=== PATIENT | male | born 1980 | race Two or more races ===

== ENCOUNTER 2017-11-20 00:40 | Inpatient (IN) | payer OTHER ==
[2017-11-20 01:32] LABS: ADD MAN DIFF? NO
[2017-11-20 01:35] LABS: BASO % 0 % (0-3); EOS # 0.9 x10^3/uL (0.0-0.7); EOS % 5 % (0-3); HEMATOCRIT 44.5 % (39.0-53.0); HEMOGLOBIN 15.5 g/dL (13.0-17.5); LYMPH # 3.5 x10^3/uL (1.0-4.8); LYMPH % 20 % (24-48); MEAN CORPUSCULAR HEMOGLOBIN 31 pg (25-35); MEAN CORPUSCULAR HGB CONC 35 g/dL (31-37); MEAN CORPUSCULAR VOLUME 89 fL (79-100); MONO # 1.1 x10^3/uL (0.0-1.1); MONO % 7 % (0-9); NEUT # 11.9 x10^3uL (1.8-7.7); NEUT % 68 % (31-73); PLATELET COUNT 397 x10^3/uL (140-400); RED BLOOD COUNT 4.98 x10^6/uL (4.30-5.70); RED CELL DISTRIBUTION WIDTH 12.6 % (11.5-14.5); WHITE BLOOD COUNT 17.4 x10^3/uL (4.0-11.0)
[2017-11-20] MEDS: MORPHINE SULFATE 4 MG/ML DISP.SYRIN. IV/SQ ×3 (01:37→04:20)
[2017-11-20] MEDS: ONDANSETRON PF 4 MG/2 ML VIAL. IV ×4 (01:38→12:38)
[2017-11-20] MEDS: IV NORMAL SALINE 1000ML BAG 1,000 ML IV ×4 (01:38→17:10)
[2017-11-20 01:44] LABS: ANION GAP 6 (6-14); BLOOD UREA NITROGEN 19 mg/dL (8-26); BUN/CREATININE RATIO 24 (6-20); CALCIUM 9.6 mg/dL (8.5-10.1); CARBON DIOXIDE 30 mmol/L (21-32); CHLORIDE 103 mmol/L (98-107); CREATININE 0.8 mg/dL (0.7-1.3); GFR 107.6; GLUCOSE 122 mg/dL (70-99); POTASSIUM 3.8 mmol/L (3.5-5.1); SODIUM 139 mmol/L (136-145)
[2017-11-20 01:50] LABS: ALK PHOS 80 U/L (46-116); ALT (SGPT) 45 U/L (16-63); AST (SGOT) 30 U/L (15-37); TOTAL BILIRUBIN 0.4 mg/dL (0.2-1.0); TOTAL PROTEIN 8.2 g/dL (6.4-8.2)
[2017-11-20 01:55] LABS: BILIRUBIN,URINE NEGATIVE (NEG); CLARITY,URINE CLEAR; COLOR,URINE YELLOW; GLUCOSE,URINE NEGATIVE (NEG); NITRITE,URINE NEGATIVE (NEG); PROTEIN,URINE NEGATIVE (NEG-TRACE); UROBILINOGEN,URINE 0.2 mg/dL (0.2 mg/dL)
[2017-11-20 02:00] LABS: AMORPHOUS SEDIMENT,UR PRESENT /HPF; BACTERIA,URINE 0 /HPF (0-FEW); HYALINE CASTS, URINE FEW /HPF; RBC,URINE 0 /HPF (0-2); SQUAMOUS EPITHELIAL CELL,UR OCC /LPF
[2017-11-20 02:01] LABS: GRANULAR CASTS,URINE OCCASIONAL /HPF
[2017-11-20] MEDS ORDERED: CONTRAST GIVEN MC (02:30)
[2017-11-20] MEDS: IOHEXOL 300 MG/ML 100ML VIAL. IV (02:34)
[2017-11-20] MEDS ORDERED: PIP/TAZO PER PHARMACY MC (04:00)
[2017-11-20] MEDS: ACETAMINOPHEN 325 MG TABLET. PO (04:21)
[2017-11-20] MEDS: PIPERACILLIN/TAZOBACTAM 3.375 GM in IV NORMAL SALINE 50ML 50 ML IV ×3 (04:21→18:15)
[2017-11-20 04:31] LABS: LACTIC ACID 2.7 mmol/L (0.4-2.0)
[2017-11-20] MEDS: VANCOMYCIN 2 GM in IV 1/2 NORMAL SALINE 500 ML IV (04:59)
[2017-11-20] MEDS: VANCOMYCIN PER PHARMACY MC ×2 (06:55→15:35)
[2017-11-20 07:19] LABS: LACTIC ACID 2.2 mmol/L (0.4-2.0)
[2017-11-20] MEDS: LACTOBACILLUS RHAMNOSUS GG 1 CAPSULE. PO ×2 (08:10→21:00)
[2017-11-20] MEDS: fentaNYL PF VIAL 100 MCG/2 ML VIAL IV ×3 (10:07→17:40)
[2017-11-20] MEDS ORDERED: hydrALAZINE 20 MG/ML VIAL. IVP (11:15)
[2017-11-20] MEDS ORDERED: HYDROcodone/APAP 5/325MG 1 TAB TABLET PO (11:15)
[2017-11-20] MEDS ORDERED: traMADol 50 MG TABLET PO (11:15)
[2017-11-20] MEDS: MORPHINE SULFATE 4 MG/ML DISP.SYRIN. IV (12:39)
[2017-11-20] MEDS: ENOXAPARIN 40 MG/0.4 ML SYRINGE. SQ (14:00)
[2017-11-20] MEDS: VANCOMYCIN 1.25 GM in IV 1/2 NORMAL SALINE 250 ML IV ×2 (14:26→22:00)
[2017-11-20] MEDS: IV RINGERS,LACTATED 1000ML 1,000 ML IV (14:49)
[2017-11-20] MEDS ORDERED: PROCHLORPERAZINE 10 MG/2 ML VIAL. IV (15:00)
[2017-11-20] MEDS ORDERED: LIDOCAINE 1% PF 2 ML VIAL. ID (15:00)
[2017-11-20] MEDS ORDERED: fentaNYL PF VIAL 100 MCG/2 ML VIAL IV (15:00)
[2017-11-20] MEDS ORDERED: MORPHINE SULFATE 4 MG/ML DISP.SYRIN. IV ×2 (15:00→17:15)
[2017-11-20] MEDS ORDERED: ONDANSETRON PF 4 MG/2 ML VIAL. IV (15:00)
[2017-11-20 15:04] LABS: HEMOGLOBIN 13.9 g/dL (13.0-17.5); MEAN CORPUSCULAR HEMOGLOBIN 31 pg (25-35); MEAN CORPUSCULAR HGB CONC 36 g/dL (31-37); MEAN CORPUSCULAR VOLUME 88 fL (79-100); PLATELET COUNT 312 x10^3/uL (140-400); RED BLOOD COUNT 4.43 x10^6/uL (4.30-5.70); RED CELL DISTRIBUTION WIDTH 12.8 % (11.5-14.5); WHITE BLOOD COUNT 11.4 x10^3/uL (4.0-11.0)
[2017-11-20] MEDS ORDERED: fentaNYL PF VIAL 100 MCG/2 ML VIAL (15:18)
[2017-11-20] MEDS ORDERED: LIDOCAINE 1% PF 5 ML VIAL. (15:18)
[2017-11-20] MEDS ORDERED: DEXAMETHASONE SOD PHOS 20 MG/5 ML VIAL. (15:18)
[2017-11-20] MEDS ORDERED: PROPOFOL 20 ML IV (15:18)
[2017-11-20] MEDS ORDERED: ONDANSETRON PF 4 MG/2 ML VIAL. (15:18)
[2017-11-20] MEDS ORDERED: PHENYLEPHRINE in 0.9% NACL PF 1 MG/10 ML SYRINGE. IV (16:10)
[2017-11-20] MEDS ORDERED: DEXTROSE 50% 25 GM / 50ML DISP.SYRIN. IV (17:15)
[2017-11-21] MEDS: PIPERACILLIN/TAZOBACTAM 3.375 GM in IV NORMAL SALINE 50ML 50 ML IV ×2 (00:41→06:00)
[2017-11-21] MEDS: HYDROcodone/APAP 7.5/325MG 1 TAB TABLET PO ×2 (01:21→22:06)
[2017-11-21] MEDS: ONDANSETRON PF 4 MG/2 ML VIAL. IV (01:39)
[2017-11-21] MEDS: oxyCODONE IR 5 MG TABLET PO ×2 (01:40→23:14)
[2017-11-21] MEDS: MORPHINE SULFATE 4 MG/ML DISP.SYRIN. IV ×2 (01:40→14:30)
[2017-11-21 05:56] LABS: ADD MAN DIFF? NO
[2017-11-21] MEDS ORDERED: MAGNESIUM HYDROXIDE 2,400 MG/30 ML ORAL.SUSP. PO (06:00)
[2017-11-21 06:05] LABS: BASO % 0 % (0-3); EOS % 0 % (0-3); HEMATOCRIT 38.1 % (39.0-53.0); HEMOGLOBIN 13.1 g/dL (13.0-17.5); LYMPH # 2.1 x10^3/uL (1.0-4.8); LYMPH % 17 % (24-48); MEAN CORPUSCULAR HEMOGLOBIN 31 pg (25-35); MEAN CORPUSCULAR HGB CONC 34 g/dL (31-37); MEAN CORPUSCULAR VOLUME 90 fL (79-100); MONO # 1.8 x10^3/uL (0.0-1.1); MONO % 15 % (0-9); NEUT # 8.6 x10^3uL (1.8-7.7); NEUT % 68 % (31-73); PLATELET COUNT 293 x10^3/uL (140-400); RED BLOOD COUNT 4.24 x10^6/uL (4.30-5.70); RED CELL DISTRIBUTION WIDTH 12.8 % (11.5-14.5); WHITE BLOOD COUNT 12.6 x10^3/uL (4.0-11.0)
[2017-11-21 06:14] LABS: BLOOD UREA NITROGEN 25 mg/dL (8-26); CALCIUM 7.8 mg/dL (8.5-10.1); CREATININE 3.1 mg/dL (0.7-1.3); GFR 22.5; GLUCOSE 168 mg/dL (70-99); SODIUM 140 mmol/L (136-145)
[2017-11-21 06:15] LABS: ANION GAP 12 (6-14); CARBON DIOXIDE 24 mmol/L (21-32); CHLORIDE 104 mmol/L (98-107); POTASSIUM 4.2 mmol/L (3.5-5.1)
[2017-11-21 06:18] LABS: VANC TR 38.4 mcg/mL (10.0-20.0)
[2017-11-21] MEDS: VANCOMYCIN PER PHARMACY MC (06:31)
[2017-11-21 07:53] LABS: CREATINE KINASE 469 U/L (39-308)
[2017-11-21] MEDS: ASPIRIN 325 MG TABLET PO (08:06)
[2017-11-21] MEDS: SENNOSIDES/DOCUSATE 8.6/50MG TABLET. PO (10:13)
[2017-11-21] MEDS: IV NORMAL SALINE 1000ML BAG 1,000 ML IV ×3 (10:13→22:07)
[2017-11-21] MEDS: LACTOBACILLUS RHAMNOSUS GG 1 CAPSULE. PO ×2 (10:14→22:07)
[2017-11-21] MEDS: HEPARIN PF for SUB-Q USE 5,000 UNIT/0.5 ML VIAL. SQ ×2 (13:51→22:00)
[2017-11-21] MEDS: PIPERACILLIN/TAZOBACTAM 2.25 GM in IV NORMAL SALINE 50ML 50 ML IV ×2 (13:53→22:06)
[2017-11-21] MEDS ORDERED: BISACODYL 10 MG SUPP.RECT. PR (16:00)
[2017-11-21] MEDS: DIPHTH,PERTUSS(ACELL),TET TOX 0.5 ML DISP.SYRIN. VAX IM (16:13)
[2017-11-21] MEDS: fentaNYL PF VIAL 100 MCG/2 ML VIAL IV (23:14)
[2017-11-22] MEDS: IV NORMAL SALINE 1000ML BAG 1,000 ML IV ×3 (04:00→17:16)
[2017-11-22] MEDS ORDERED: VANCOMYCIN RANDOM LEVEL. MC (05:00)
[2017-11-22 05:27] LABS: ADD MAN DIFF? NO
[2017-11-22 05:40] LABS: BASO # 0.1 x10^3/uL (0.0-0.2); BASO % 0 % (0-3); EOS # 0.2 x10^3/uL (0.0-0.7); EOS % 2 % (0-3); HEMATOCRIT 34.3 % (39.0-53.0); HEMOGLOBIN 12.1 g/dL (13.0-17.5); LYMPH # 2.6 x10^3/uL (1.0-4.8); LYMPH % 19 % (24-48); MEAN CORPUSCULAR HEMOGLOBIN 32 pg (25-35); MEAN CORPUSCULAR HGB CONC 35 g/dL (31-37); MEAN CORPUSCULAR VOLUME 90 fL (79-100); MONO # 1.5 x10^3/uL (0.0-1.1); MONO % 11 % (0-9); NEUT % 68 % (31-73); PLATELET COUNT 260 x10^3/uL (140-400); RED BLOOD COUNT 3.79 x10^6/uL (4.30-5.70); RED CELL DISTRIBUTION WIDTH 12.9 % (11.5-14.5); WHITE BLOOD COUNT 13.2 x10^3/uL (4.0-11.0)
[2017-11-22] MEDS: PIPERACILLIN/TAZOBACTAM 2.25 GM in IV NORMAL SALINE 50ML 50 ML IV ×3 (05:57→22:29)
[2017-11-22] MEDS: HEPARIN PF for SUB-Q USE 5,000 UNIT/0.5 ML VIAL. SQ ×3 (05:57→22:32)
[2017-11-22 05:59] LABS: ANION GAP 13 (6-14); BLOOD UREA NITROGEN 43 mg/dL (8-26); CALCIUM 7.5 mg/dL (8.5-10.1); CARBON DIOXIDE 22 mmol/L (21-32); CHLORIDE 105 mmol/L (98-107); CREATININE 4.8 mg/dL (0.7-1.3); GFR 13.6; GLUCOSE 106 mg/dL (70-99); POTASSIUM 3.5 mmol/L (3.5-5.1); SODIUM 140 mmol/L (136-145)
[2017-11-22] MEDS: HYDROcodone/APAP 7.5/325MG 1 TAB TABLET PO (06:29)
[2017-11-22] MEDS: ONDANSETRON PF 4 MG/2 ML VIAL. IV (07:25)
[2017-11-22 08:33] LABS: CREATINE KINASE 206 U/L (39-308)
[2017-11-22] MEDS: MORPHINE SULFATE 4 MG/ML DISP.SYRIN. IV ×3 (09:24→23:06)
[2017-11-22] MEDS: ASPIRIN 325 MG TABLET PO (09:24)
[2017-11-22] MEDS: SENNOSIDES/DOCUSATE 8.6/50MG TABLET. PO (09:25)
[2017-11-22] MEDS: LACTOBACILLUS RHAMNOSUS GG 1 CAPSULE. PO ×2 (09:25→21:03)
[2017-11-22 11:41] LABS: IONIZED CALCIUM 1.05 mmol/L (1.13-1.32)
[2017-11-22 11:47] LABS: ALBUMIN 2.6 g/dL (3.4-5.0)
[2017-11-22 11:47] LABS: PHOSPHORUS 3.3 mg/dL (2.6-4.7)
[2017-11-22 13:57] LABS: LACTIC ACID 0.8 mmol/L (0.4-2.0)
[2017-11-22] MEDS: DOCUSATE SODIUM 100 MG CAPSULE. PO (15:43)
[2017-11-22] MEDS: oxyCODONE IR 5 MG TABLET PO (15:44)
[2017-11-22] MEDS: ACETAMINOPHEN 325 MG TABLET. PO (23:38)
[2017-11-23] MEDS: HEPARIN PF for SUB-Q USE 5,000 UNIT/0.5 ML VIAL. SQ ×3 (06:00→21:46)
[2017-11-23] MEDS: PIPERACILLIN/TAZOBACTAM 2.25 GM in IV NORMAL SALINE 50ML 50 ML IV ×3 (06:13→21:35)
[2017-11-23] MEDS: ONDANSETRON PF 4 MG/2 ML VIAL. IV (06:14)
[2017-11-23] MEDS: IV NORMAL SALINE 1000ML BAG 1,000 ML IV ×3 (06:14→13:20)
[2017-11-23] MEDS: MORPHINE SULFATE 4 MG/ML DISP.SYRIN. IV (06:14)
[2017-11-23] MEDS ORDERED: IV RINGERS,LACTATED 1000ML 1,000 ML IV (07:00)
[2017-11-23] MEDS ORDERED: ONDANSETRON PF 4 MG/2 ML VIAL. IV ×2 (07:00→13:30)
[2017-11-23] MEDS ORDERED: MORPHINE SULFATE 4 MG/ML DISP.SYRIN. IV ×3 (07:00→13:31)
[2017-11-23] MEDS ORDERED: LIDOCAINE 1% PF 2 ML VIAL. ID (07:00)
[2017-11-23] MEDS ORDERED: fentaNYL PF VIAL 100 MCG/2 ML VIAL IV ×2 (07:00→13:30)
[2017-11-23 07:43] LABS: ADD MAN DIFF? NO
[2017-11-23 07:46] LABS: BASO # 0.1 x10^3/uL (0.0-0.2); BASO % 1 % (0-3); EOS # 0.4 x10^3/uL (0.0-0.7); EOS % 3 % (0-3); HEMATOCRIT 33.6 % (39.0-53.0); HEMOGLOBIN 11.5 g/dL (13.0-17.5); LYMPH # 1.9 x10^3/uL (1.0-4.8); LYMPH % 16 % (24-48); MEAN CORPUSCULAR HEMOGLOBIN 31 pg (25-35); MEAN CORPUSCULAR HGB CONC 34 g/dL (31-37); MEAN CORPUSCULAR VOLUME 90 fL (79-100); MONO # 1.3 x10^3/uL (0.0-1.1); MONO % 11 % (0-9); NEUT # 8.7 x10^3uL (1.8-7.7); NEUT % 70 % (31-73); PLATELET COUNT 281 x10^3/uL (140-400); RED BLOOD COUNT 3.71 x10^6/uL (4.30-5.70); WHITE BLOOD COUNT 12.3 x10^3/uL (4.0-11.0)
[2017-11-23] MEDS: ASPIRIN 325 MG TABLET PO (08:00)
[2017-11-23 08:04] LABS: ALBUMIN 2.5 g/dL (3.4-5.0); ANION GAP 15 (6-14); BLOOD UREA NITROGEN 57 mg/dL (8-26); CALCIUM 7.6 mg/dL (8.5-10.1); CARBON DIOXIDE 19 mmol/L (21-32); CHLORIDE 108 mmol/L (98-107); CREATININE 5.8 mg/dL (0.7-1.3); GFR 10.9; GLUCOSE 111 mg/dL (70-99); PHOSPHORUS 3.9 mg/dL (2.6-4.7); POTASSIUM 4.1 mmol/L (3.5-5.1); SODIUM 142 mmol/L (136-145)
[2017-11-23] MEDS: LACTOBACILLUS RHAMNOSUS GG 1 CAPSULE. PO ×2 (09:00→21:33)
[2017-11-23] MEDS: SENNOSIDES/DOCUSATE 8.6/50MG TABLET. PO ×2 (09:00→14:00)
[2017-11-23] MEDS ORDERED: fentaNYL PF VIAL 100 MCG/2 ML VIAL ×3 (11:22→12:53)
[2017-11-23] MEDS ORDERED: PROPOFOL 20 ML IV ×2 (11:23→12:20)
[2017-11-23] MEDS ORDERED: LIDOCAINE 1% PF 5 ML VIAL. (11:23)
[2017-11-23] MEDS ORDERED: DEXAMETHASONE SOD PHOS 20 MG/5 ML VIAL. (11:23)
[2017-11-23] MEDS ORDERED: ONDANSETRON PF 4 MG/2 ML VIAL. (11:23)
[2017-11-23] MEDS: fentaNYL PF VIAL 100 MCG/2 ML VIAL IM (11:45)
[2017-11-23] MEDS ORDERED: IV NORMAL SALINE 1000ML BAG 1,000 ML IV ×2 (12:00→17:26)
[2017-11-23 12:11] LABS: SEDIMENTATION RATE 52 (0-15)
[2017-11-23] MEDS ORDERED: SEVOFLURANE 16 TO 30 MINUTES. IH (12:26)
[2017-11-23] MEDS: BUPIVACAINE-EPI 0.25%-1:200000 50 ML VIAL. (12:34)
[2017-11-23] MEDS ORDERED: POLYETHYLENE GLYCOL 3350 17 GM PACKET. PO (13:30)
[2017-11-23] MEDS ORDERED: DEXTROSE 50% 25 GM / 50ML DISP.SYRIN. IV (13:30)
[2017-11-23] MEDS ORDERED: HYDROcodone/APAP 7.5/325MG 1 TAB TABLET PO ×2 (13:30)
[2017-11-23] MEDS ORDERED: MORPHINE SULFATE 2 MG/ML DISP.SYRIN. IV (13:30)
[2017-11-23] MEDS ORDERED: oxyCODONE IR 5 MG TABLET PO (13:30)
[2017-11-23] MEDS: fentaNYL PF VIAL 100 MCG/2 ML VIAL IV ×2 (13:39→13:45)
[2017-11-23] MEDS: PROCHLORPERAZINE 10 MG/2 ML VIAL. IV (13:47)
[2017-11-23] MEDS ORDERED: MEPERIDINE PF 25 MG/ML VIAL. (13:52)
[2017-11-23] MEDS: MEPERIDINE PF 25 MG/ML VIAL. IM (14:10)
[2017-11-23 14:26] LABS: CALCIUM PTH 7.8 mg/dL (8.7-10.2); CREATININE PTH 4.87 mg/dL (0.76-1.27); PHOSPHORUS PTH 3.2 mg/dL (2.5-4.5); PTH INTACT 148 pg/mL (15-65); eGFR AFRICAN-AMER 16 (>59); eGFR NON AFRICAN-AMER 14 (>59)
[2017-11-23] MEDS ORDERED: HEPARIN for IV BOLUS 10,000 UNIT/10 ML VIAL. (14:30)
[2017-11-23] MEDS ORDERED: LIDOCAINE WITH 8.4% SOD BICARB 3 ML DISP.SYRIN. (14:30)
[2017-11-23] MEDS ORDERED: hydrALAZINE 20 MG/ML VIAL. IVP (15:00)
[2017-11-23] MEDS: FUROSEMIDE 100 MG/10 ML VIAL. IVP (15:45)
[2017-11-23 16:03] LABS: BASE EXCESS ABG -11 mmol/L (-3-3); HCO3 ABG 14 mmol/L (21-28); PCO2 ABG 28 mmHg (35-46); PO2 ABG 83 mmHg (75-108); SAT O2 ABG 95 % (92-99)
[2017-11-23] MEDS: SODIUM BICARB ADULT 8.4% 50 MEQ/50 ML DISP.SYRIN. IV ×2 (16:30)
[2017-11-23] MEDS ORDERED: DIALYSIS PATIENT. MC ×2 (17:30)
[2017-11-24 05:22] LABS: MRSA BY PCR Negative (Negative)
[2017-11-24] MEDS: PIPERACILLIN/TAZOBACTAM 2.25 GM in IV NORMAL SALINE 50ML 50 ML IV (05:42)
[2017-11-24] MEDS: HEPARIN PF for SUB-Q USE 5,000 UNIT/0.5 ML VIAL. SQ ×3 (05:43→22:23)
[2017-11-24 05:55] LABS: ADD MAN DIFF? NO
[2017-11-24] MEDS ORDERED: MAGNESIUM HYDROXIDE 2,400 MG/30 ML ORAL.SUSP. PO (06:00)
[2017-11-24 06:04] LABS: BASO # 0.1 x10^3/uL (0.0-0.2); BASO % 1 % (0-3); EOS # 0.1 x10^3/uL (0.0-0.7); EOS % 1 % (0-3); HEMATOCRIT 31.4 % (39.0-53.0); HEMOGLOBIN 10.9 g/dL (13.0-17.5); LYMPH # 2.1 x10^3/uL (1.0-4.8); LYMPH % 14 % (24-48); MEAN CORPUSCULAR HEMOGLOBIN 31 pg (25-35); MEAN CORPUSCULAR HGB CONC 35 g/dL (31-37); MEAN CORPUSCULAR VOLUME 89 fL (79-100); MONO # 1.7 x10^3/uL (0.0-1.1); MONO % 11 % (0-9); NEUT # 11.1 x10^3uL (1.8-7.7); NEUT % 74 % (31-73); PLATELET COUNT 304 x10^3/uL (140-400); RED BLOOD COUNT 3.52 x10^6/uL (4.30-5.70); RED CELL DISTRIBUTION WIDTH 12.8 % (11.5-14.5)
[2017-11-24 06:35] LABS: BACTERIA,URINE 0 /HPF (0-FEW); BILIRUBIN,URINE NEGATIVE (NEG); CLARITY,URINE CLEAR; COLOR,URINE YELLOW; GLUCOSE,URINE NEGATIVE (NEG); NITRITE,URINE NEGATIVE (NEG); PH,URINE 5.5; PROTEIN,URINE 30 mg/dL (NEG-TRACE); RBC,URINE 0 /HPF (0-2); SQUAMOUS EPITHELIAL CELL,UR OCC /LPF; UROBILINOGEN,URINE 0.2 mg/dL (0.2 mg/dL); WBC,URINE 0 /HPF (0-4)
[2017-11-24] MEDS: HYDROcodone/APAP 7.5/325MG 1 TAB TABLET PO ×3 (06:42→23:41)
[2017-11-24 06:43] LABS: ALBUMIN 2.3 g/dL (3.4-5.0); ALBUMIN/GLOBULIN RATIO 0.5 (1.0-1.7); ALK PHOS 114 U/L (46-116); ALT (SGPT) 48 U/L (16-63); ANION GAP 11 (6-14); AST (SGOT) 30 U/L (15-37); BLOOD UREA NITROGEN 49 mg/dL (8-26); BUN/CREATININE RATIO 11 (6-20); CALCIUM 7.7 mg/dL (8.5-10.1); CARBON DIOXIDE 25 mmol/L (21-32); CHLORIDE 106 mmol/L (98-107); CREATININE 4.6 mg/dL (0.7-1.3); GFR 14.3; GLUCOSE 127 mg/dL (70-99); SODIUM 142 mmol/L (136-145); TOTAL BILIRUBIN 0.8 mg/dL (0.2-1.0); TOTAL PROTEIN 6.5 g/dL (6.4-8.2)
[2017-11-24 08:32] LABS: HEP B SURFACE ABDY Reactive (.); HEP B SURFACE AG Negative (Negative)
[2017-11-24] MEDS: LACTOBACILLUS RHAMNOSUS GG 1 CAPSULE. PO ×2 (09:23→22:18)
[2017-11-24] MEDS: ASPIRIN 325 MG TABLET PO (11:24)
[2017-11-24] MEDS: SENNOSIDES/DOCUSATE 8.6/50MG TABLET. PO (11:24)
[2017-11-24] MEDS ORDERED: IV NORMAL SALINE 1000ML BAG 1,000 ML IV ×2 (14:16)
[2017-11-24] MEDS ORDERED: DIALYSIS PATIENT. MC (14:30)
[2017-11-24] MEDS ORDERED: diphenhydrAMINE 50 MG/ML VIAL IV ×2 (14:30)
[2017-11-24] MEDS ORDERED: 0.9 % SODIUM CHLORIDE 10 ML DISP.SYRIN. IV ×2 (14:30)
[2017-11-24] MEDS: FOLIC/VIT B COMP W-C (RENAL) TABLET. PO (15:15)
[2017-11-24] MEDS: ASCORBIC ACID 500 MG TABLET PO (15:15)
[2017-11-24 15:32] LABS: SODIUM, URINE <60 mmol/L (Not Estab.); UR POTASSIUM 14.9 mmol/L (Not Estab.)
[2017-11-24] MEDS ORDERED: BISACODYL 10 MG SUPP.RECT. PR (16:00)
[2017-11-24] MEDS: ACETAMINOPHEN 325 MG TABLET. PO (19:35)
[2017-11-24 22:21] LABS: SPECIMEN SOURCE Urine (.); STREP PNEUMO ANTIGEN Negative (Negative)
[2017-11-24 22:21] LABS: LEGIONELLA AG UR Negative (Negative)
[2017-11-25] MEDS: HYDROcodone/APAP 7.5/325MG 1 TAB TABLET PO (04:07)
[2017-11-25] MEDS: HEPARIN PF for SUB-Q USE 5,000 UNIT/0.5 ML VIAL. SQ ×3 (06:05→21:57)
[2017-11-25] MEDS: oxyCODONE IR 5 MG TABLET PO (07:12)
[2017-11-25] MEDS: FOLIC/VIT B COMP W-C (RENAL) TABLET. PO (08:29)
[2017-11-25] MEDS: LACTOBACILLUS RHAMNOSUS GG 1 CAPSULE. PO ×2 (08:29→21:54)
[2017-11-25] MEDS: SENNOSIDES/DOCUSATE 8.6/50MG TABLET. PO (08:29)
[2017-11-25] MEDS: ASCORBIC ACID 500 MG TABLET PO (08:30)
[2017-11-25] MEDS: ASPIRIN 325 MG TABLET PO (08:30)
[2017-11-26] MEDS: MORPHINE SULFATE 4 MG/ML DISP.SYRIN. IV ×3 (04:15→15:33)
[2017-11-26 05:15] LABS: ADD MAN DIFF? NO
[2017-11-26 05:21] LABS: BASO # 0.1 x10^3/uL (0.0-0.2); BASO % 1 % (0-3); EOS # 1.1 x10^3/uL (0.0-0.7); EOS % 8 % (0-3); HEMATOCRIT 31.2 % (39.0-53.0); HEMOGLOBIN 10.9 g/dL (13.0-17.5); LYMPH # 2.2 x10^3/uL (1.0-4.8); LYMPH % 17 % (24-48); MEAN CORPUSCULAR HEMOGLOBIN 31 pg (25-35); MEAN CORPUSCULAR HGB CONC 35 g/dL (31-37); MEAN CORPUSCULAR VOLUME 90 fL (79-100); MONO # 1.4 x10^3/uL (0.0-1.1); MONO % 11 % (0-9); NEUT # 8.2 x10^3uL (1.8-7.7); NEUT % 63 % (31-73); PLATELET COUNT 331 x10^3/uL (140-400); RED BLOOD COUNT 3.48 x10^6/uL (4.30-5.70); RED CELL DISTRIBUTION WIDTH 12.6 % (11.5-14.5); WHITE BLOOD COUNT 12.9 x10^3/uL (4.0-11.0)
[2017-11-26 05:49] LABS: ALBUMIN 2.3 g/dL (3.4-5.0); ALBUMIN/GLOBULIN RATIO 0.5 (1.0-1.7); ALK PHOS 110 U/L (46-116); ALT (SGPT) 40 U/L (16-63); ANION GAP 13 (6-14); AST (SGOT) 28 U/L (15-37); BLOOD UREA NITROGEN 51 mg/dL (8-26); BUN/CREATININE RATIO 11 (6-20); CALCIUM 8.6 mg/dL (8.5-10.1); CARBON DIOXIDE 26 mmol/L (21-32); CHLORIDE 102 mmol/L (98-107); CREATININE 4.8 mg/dL (0.7-1.3); GFR 13.6; GLUCOSE 119 mg/dL (70-99); PHOSPHORUS 4.8 mg/dL (2.6-4.7); POTASSIUM 4.1 mmol/L (3.5-5.1); SODIUM 141 mmol/L (136-145); TOTAL BILIRUBIN 0.6 mg/dL (0.2-1.0); TOTAL PROTEIN 6.9 g/dL (6.4-8.2)
[2017-11-26] MEDS: HEPARIN PF for SUB-Q USE 5,000 UNIT/0.5 ML VIAL. SQ ×3 (06:00→22:00)
[2017-11-26] MEDS ORDERED: LIDOCAINE 1% PF 2 ML VIAL. ID (07:00)
[2017-11-26] MEDS ORDERED: PROCHLORPERAZINE 10 MG/2 ML VIAL. IV (07:00)
[2017-11-26] MEDS ORDERED: ONDANSETRON PF 4 MG/2 ML VIAL. IV (07:00)
[2017-11-26] MEDS: IV RINGERS,LACTATED 1000ML 1,000 ML IV (07:00)
[2017-11-26] MEDS ORDERED: fentaNYL PF VIAL 100 MCG/2 ML VIAL IV ×2 (07:00)
[2017-11-26] MEDS: ASPIRIN 325 MG TABLET PO (07:49)
[2017-11-26] MEDS: FOLIC/VIT B COMP W-C (RENAL) TABLET. PO (07:50)
[2017-11-26] MEDS: ASCORBIC ACID 500 MG TABLET PO (07:50)
[2017-11-26] MEDS: LACTOBACILLUS RHAMNOSUS GG 1 CAPSULE. PO ×2 (07:50→21:11)
[2017-11-26] MEDS: SENNOSIDES/DOCUSATE 8.6/50MG TABLET. PO (07:50)
[2017-11-26] MEDS: BISACODYL 10 MG SUPP.RECT. PR (10:11)
[2017-11-26] MEDS ORDERED: LIDOCAINE 2% PF Vial for OR 5 ML VIAL. (10:48)
[2017-11-26] MEDS ORDERED: ONDANSETRON PF 4 MG/2 ML VIAL. (10:48)
[2017-11-26] MEDS ORDERED: PROPOFOL 20 ML IV (10:48)
[2017-11-26] MEDS ORDERED: ePHEDrine PF IN SALINE 50 MG/5 ML DISP.SYRIN IV (11:59)
[2017-11-26] MEDS ORDERED: fentaNYL PF VIAL 100 MCG/2 ML VIAL ×2 (12:00→13:37)
[2017-11-26] MEDS ORDERED: MIDAZOLAM HCL/PF 2 MG/2 ML VIAL. (13:07)
[2017-11-26] MEDS ORDERED: DEXAMETHASONE SOD PHOS 20 MG/5 ML VIAL. (13:20)
[2017-11-26] MEDS: BUPIVACAINE-EPI 0.25%-1:200000 50 ML VIAL. (13:39)
[2017-11-26] MEDS ORDERED: DEXTROSE 50% 25 GM / 50ML DISP.SYRIN. IV (15:00)
[2017-11-26] MEDS ORDERED: IV NORMAL SALINE 1000ML BAG 1,000 ML IV (16:30)
[2017-11-27] MEDS: HYDROcodone/APAP 7.5/325MG 1 TAB TABLET PO ×2 (03:01→22:12)
[2017-11-27 05:39] LABS: BASO # 0.1 x10^3/uL (0.0-0.2); BASO % 0 % (0-3); EOS # 0.1 x10^3/uL (0.0-0.7); EOS % 0 % (0-3); HEMATOCRIT 31.1 % (39.0-53.0); HEMOGLOBIN 10.8 g/dL (13.0-17.5); LYMPH # 1.6 x10^3/uL (1.0-4.8); LYMPH % 10 % (24-48); MEAN CORPUSCULAR HEMOGLOBIN 31 pg (25-35); MEAN CORPUSCULAR HGB CONC 35 g/dL (31-37); MEAN CORPUSCULAR VOLUME 90 fL (79-100); MONO # 1.6 x10^3/uL (0.0-1.1); MONO % 10 % (0-9); NEUT # 13.4 x10^3uL (1.8-7.7); NEUT % 80 % (31-73); PLATELET COUNT 402 x10^3/uL (140-400); RED BLOOD COUNT 3.47 x10^6/uL (4.30-5.70); RED CELL DISTRIBUTION WIDTH 12.8 % (11.5-14.5); WHITE BLOOD COUNT 16.7 x10^3/uL (4.0-11.0)
[2017-11-27 05:59] LABS: ADD MAN DIFF? YES
[2017-11-27] MEDS: HEPARIN PF for SUB-Q USE 5,000 UNIT/0.5 ML VIAL. SQ ×3 (06:00→22:18)
[2017-11-27 06:17] LABS: ALBUMIN 2.3 g/dL (3.4-5.0); ALBUMIN/GLOBULIN RATIO 0.5 (1.0-1.7); ALK PHOS 106 U/L (46-116); ALT (SGPT) 47 U/L (16-63); ANION GAP 11 (6-14); AST (SGOT) 41 U/L (15-37); BLOOD UREA NITROGEN 67 mg/dL (8-26); BUN/CREATININE RATIO 13 (6-20); CARBON DIOXIDE 27 mmol/L (21-32); CHLORIDE 103 mmol/L (98-107); CREATININE 5.1 mg/dL (0.7-1.3); GFR 12.7; GLUCOSE 139 mg/dL (70-99); POTASSIUM 4.7 mmol/L (3.5-5.1); SODIUM 141 mmol/L (136-145); TOTAL BILIRUBIN 0.3 mg/dL (0.2-1.0); TOTAL PROTEIN 7.1 g/dL (6.4-8.2)
[2017-11-27] MEDS: FOLIC/VIT B COMP W-C (RENAL) TABLET. PO (08:25)
[2017-11-27] MEDS: LACTOBACILLUS RHAMNOSUS GG 1 CAPSULE. PO ×2 (08:25→21:00)
[2017-11-27] MEDS: ASPIRIN 325 MG TABLET PO (08:25)
[2017-11-27] MEDS: SENNOSIDES/DOCUSATE 8.6/50MG TABLET. PO (08:25)
[2017-11-27] MEDS: ASCORBIC ACID 500 MG TABLET PO (08:26)
[2017-11-27] MEDS ORDERED: IV NORMAL SALINE 1000ML BAG 1,000 ML IV ×2 (09:54)
[2017-11-27] MEDS ORDERED: DIALYSIS PATIENT. MC ×2 (10:00)
[2017-11-27 12:05] LABS: % ATYL 2 % (0-0); % BANDS 5 % (0-9); % LYMPHS 10 % (24-48); % MONOS 9 % (0-10); % SEGS 74 % (35-66)
[2017-11-27 12:06] LABS: PLT ESTIMATE INCREASED (ADEQUATE)
[2017-11-27] MEDS: POLYETHYLENE GLYCOL 3350 17 GM PACKET. PO (22:13)
[2017-11-28 06:19] LABS: ADD MAN DIFF? NO
[2017-11-28 06:29] LABS: BASO # 0.1 x10^3/uL (0.0-0.2); BASO % 1 % (0-3); EOS # 1.4 x10^3/uL (0.0-0.7); EOS % 9 % (0-3); HEMATOCRIT 30.8 % (39.0-53.0); HEMOGLOBIN 10.8 g/dL (13.0-17.5); LYMPH # 3.3 x10^3/uL (1.0-4.8); LYMPH % 22 % (24-48); MEAN CORPUSCULAR HEMOGLOBIN 32 pg (25-35); MEAN CORPUSCULAR HGB CONC 35 g/dL (31-37); MEAN CORPUSCULAR VOLUME 90 fL (79-100); MONO # 1.9 x10^3/uL (0.0-1.1); MONO % 12 % (0-9); NEUT # 8.7 x10^3uL (1.8-7.7); NEUT % 57 % (31-73); PLATELET COUNT 383 x10^3/uL (140-400); RED BLOOD COUNT 3.41 x10^6/uL (4.30-5.70); RED CELL DISTRIBUTION WIDTH 12.7 % (11.5-14.5); WHITE BLOOD COUNT 15.5 x10^3/uL (4.0-11.0)
[2017-11-28 06:45] LABS: ALBUMIN 2.4 g/dL (3.4-5.0); ALBUMIN/GLOBULIN RATIO 0.5 (1.0-1.7); ALK PHOS 92 U/L (46-116); ALT (SGPT) 28 U/L (16-63); ANION GAP 10 (6-14); AST (SGOT) 54 U/L (15-37); BLOOD UREA NITROGEN 50 mg/dL (8-26); BUN/CREATININE RATIO 13 (6-20); CALCIUM 8.7 mg/dL (8.5-10.1); CARBON DIOXIDE 29 mmol/L (21-32); CHLORIDE 105 mmol/L (98-107); CREATININE 3.8 mg/dL (0.7-1.3); GFR 17.8; GLUCOSE 101 mg/dL (70-99); POTASSIUM 4.8 mmol/L (3.5-5.1); SODIUM 144 mmol/L (136-145); TOTAL BILIRUBIN 0.4 mg/dL (0.2-1.0); TOTAL PROTEIN 7.1 g/dL (6.4-8.2)
[2017-11-28] MEDS: HYDROcodone/APAP 7.5/325MG 1 TAB TABLET PO (07:42)
[2017-11-28] MEDS: HEPARIN PF for SUB-Q USE 5,000 UNIT/0.5 ML VIAL. SQ ×3 (07:42→21:26)
[2017-11-28 09:56] LABS: % ATYL 2 % (0-0); % BANDS 4 % (0-9); % BASOS 1 % (0-3); % EOS 7 % (0-5); % LYMPHS 23 % (24-48); % MONOS 11 % (0-10); % SEGS 52 % (35-66)
[2017-11-28 09:58] LABS: PLT ESTIMATE ADEQUATE (ADEQUATE)
[2017-11-28] MEDS: LACTOBACILLUS RHAMNOSUS GG 1 CAPSULE. PO ×2 (11:58→21:23)
[2017-11-28] MEDS: SENNOSIDES/DOCUSATE 8.6/50MG TABLET. PO (11:58)
[2017-11-28] MEDS: ASPIRIN 325 MG TABLET PO (11:58)
[2017-11-28] MEDS: FOLIC/VIT B COMP W-C (RENAL) TABLET. PO (11:59)
[2017-11-28] MEDS: ASCORBIC ACID 500 MG TABLET PO (11:59)
[2017-11-28] MEDS: POLYETHYLENE GLYCOL 3350 17 GM PACKET. PO (15:46)
[2017-11-29 06:07] LABS: ADD MAN DIFF? NO
[2017-11-29] MEDS: HEPARIN PF for SUB-Q USE 5,000 UNIT/0.5 ML VIAL. SQ ×3 (06:14→22:02)
[2017-11-29 06:37] LABS: ALBUMIN 2.3 g/dL (3.4-5.0); ALBUMIN/GLOBULIN RATIO 0.5 (1.0-1.7); ALK PHOS 82 U/L (46-116); ALT (SGPT) 20 U/L (16-63); ANION GAP 12 (6-14); AST (SGOT) 33 U/L (15-37); BLOOD UREA NITROGEN 66 mg/dL (8-26); BUN/CREATININE RATIO 17 (6-20); CALCIUM 8.6 mg/dL (8.5-10.1); CARBON DIOXIDE 27 mmol/L (21-32); CHLORIDE 103 mmol/L (98-107); CREATININE 3.8 mg/dL (0.7-1.3); GFR 17.8; GLUCOSE 105 mg/dL (70-99); POTASSIUM 4.8 mmol/L (3.5-5.1); SODIUM 142 mmol/L (136-145); TOTAL BILIRUBIN 0.3 mg/dL (0.2-1.0); TOTAL PROTEIN 7.1 g/dL (6.4-8.2)
[2017-11-29] MEDS: ASPIRIN 325 MG TABLET PO (08:00)
[2017-11-29 08:09] LABS: BASO # 0.2 x10^3/uL (0.0-0.2); BASO % 1 % (0-3); EOS # 1.4 x10^3/uL (0.0-0.7); EOS % 8 % (0-3); HEMATOCRIT 29.7 % (39.0-53.0); HEMOGLOBIN 10.3 g/dL (13.0-17.5); LYMPH # 3.4 x10^3/uL (1.0-4.8); LYMPH % 20 % (24-48); MEAN CORPUSCULAR HEMOGLOBIN 31 pg (25-35); MEAN CORPUSCULAR HGB CONC 35 g/dL (31-37); MEAN CORPUSCULAR VOLUME 90 fL (79-100); MONO # 1.9 x10^3/uL (0.0-1.1); MONO % 11 % (0-9); NEUT # 10.5 x10^3uL (1.8-7.7); NEUT % 61 % (31-73); PLATELET COUNT 429 x10^3/uL (140-400); RED BLOOD COUNT 3.28 x10^6/uL (4.30-5.70); RED CELL DISTRIBUTION WIDTH 12.8 % (11.5-14.5); WHITE BLOOD COUNT 17.4 x10^3/uL (4.0-11.0)
[2017-11-29] MEDS: LACTOBACILLUS RHAMNOSUS GG 1 CAPSULE. PO ×2 (08:57→21:59)
[2017-11-29] MEDS: ASCORBIC ACID 500 MG TABLET PO (08:57)
[2017-11-29] MEDS: POLYETHYLENE GLYCOL 3350 17 GM PACKET. PO (08:58)
[2017-11-29] MEDS: SENNOSIDES/DOCUSATE 8.6/50MG TABLET. PO (08:58)
[2017-11-29] MEDS: FOLIC/VIT B COMP W-C (RENAL) TABLET. PO (08:58)
[2017-11-30] MEDS ORDERED: BUPIVACAINE-EPI 0.25%-1:200000 50 ML VIAL. (05:41)
[2017-11-30] MEDS: HEPARIN PF for SUB-Q USE 5,000 UNIT/0.5 ML VIAL. SQ ×3 (06:00→22:38)
[2017-11-30] MEDS ORDERED: LIDOCAINE 1% PF 2 ML VIAL. ID (07:00)
[2017-11-30] MEDS ORDERED: IV NORMAL SALINE 500ML BAG 500 ML IV ×2 (07:00→10:15)
[2017-11-30] MEDS ORDERED: MORPHINE SULFATE 4 MG/ML DISP.SYRIN. IV (07:00)
[2017-11-30] MEDS: IV RINGERS,LACTATED 1000ML 1,000 ML IV (07:00)
[2017-11-30] MEDS ORDERED: fentaNYL PF VIAL 100 MCG/2 ML VIAL IV ×3 (07:00→10:00)
[2017-11-30] MEDS ORDERED: ONDANSETRON PF 4 MG/2 ML VIAL. IV (07:00)
[2017-11-30] MEDS ORDERED: FAMOTIDINE 20 MG/2 ML VIAL (07:02)
[2017-11-30] MEDS ORDERED: PROPOFOL 20 ML IV (07:02)
[2017-11-30] MEDS ORDERED: fentaNYL PF VIAL 100 MCG/2 ML VIAL (07:02)
[2017-11-30] MEDS ORDERED: LIDOCAINE 2% PF Vial for OR 5 ML VIAL. (07:02)
[2017-11-30] MEDS ORDERED: ONDANSETRON PF 4 MG/2 ML VIAL. (07:02)
[2017-11-30] MEDS ORDERED: DEXAMETHASONE SOD PHOS 20 MG/5 ML VIAL. (07:02)
[2017-11-30] MEDS ORDERED: SEVOFLURANE 31 TO 60 MINUTES. IH (08:05)
[2017-11-30] MEDS: fentaNYL PF VIAL 100 MCG/2 ML VIAL IV ×3 (09:09→09:55)
[2017-11-30] MEDS: PROCHLORPERAZINE 10 MG/2 ML VIAL. IV (09:09)
[2017-11-30 09:58] LABS: ANION GAP 10 (6-14); BLOOD UREA NITROGEN 72 mg/dL (8-26); CALCIUM 8.9 mg/dL (8.5-10.1); CARBON DIOXIDE 25 mmol/L (21-32); CHLORIDE 104 mmol/L (98-107); CREATININE 3.5 mg/dL (0.7-1.3); GFR 19.6; GLUCOSE 140 mg/dL (70-99); SODIUM 139 mmol/L (136-145)
[2017-11-30] MEDS ORDERED: MIDAZOLAM HCL/PF 2 MG/2 ML VIAL. IV (10:00)
[2017-11-30 10:07] LABS: POTASSIUM 5.8 mmol/L (3.5-5.1)
[2017-11-30] MEDS ORDERED: DEXTROSE 50% 25 GM / 50ML DISP.SYRIN. IV (10:30)
[2017-11-30] MEDS: LACTOBACILLUS RHAMNOSUS GG 1 CAPSULE. PO ×2 (11:07→22:31)
[2017-11-30] MEDS: ASCORBIC ACID 500 MG TABLET PO (11:07)
[2017-11-30] MEDS: ASPIRIN 325 MG TABLET PO (11:07)
[2017-11-30] MEDS: POLYETHYLENE GLYCOL 3350 17 GM PACKET. PO (11:07)
[2017-11-30] MEDS: FOLIC/VIT B COMP W-C (RENAL) TABLET. PO (11:07)
[2017-11-30] MEDS: SENNOSIDES/DOCUSATE 8.6/50MG TABLET. PO (11:07)
[2017-11-30] MEDS: FUROSEMIDE 40 MG/4 ML VIAL. IVP (12:28)
[2017-11-30 16:51] LABS: INR 1.2 (0.8-1.1); PROTHROMBIN TIME PATIENT 14.3 SEC (11.7-14.0)
[2017-11-30] MEDS: DOCUSATE SODIUM 100 MG CAPSULE. PO (22:31)
[2017-11-30] MEDS: oxyCODONE IR 5 MG TABLET PO (22:32)
[2017-12-01 06:05] LABS: HEMATOCRIT 30.1 % (39.0-53.0); HEMOGLOBIN 10.5 g/dL (13.0-17.5); MEAN CORPUSCULAR HGB CONC 35 g/dL (31-37)
[2017-12-01] MEDS: HEPARIN PF for SUB-Q USE 5,000 UNIT/0.5 ML VIAL. SQ ×3 (06:27→22:16)
[2017-12-01 07:08] LABS: ANION GAP 14 (6-14); BLOOD UREA NITROGEN 67 mg/dL (8-26); CALCIUM 8.7 mg/dL (8.5-10.1); CARBON DIOXIDE 25 mmol/L (21-32); CHLORIDE 99 mmol/L (98-107); CREATININE 3.5 mg/dL (0.7-1.3); GFR 19.6; GLUCOSE 96 mg/dL (70-99); SODIUM 138 mmol/L (136-145)
[2017-12-01 07:16] LABS: POTASSIUM 4.7 mmol/L (3.5-5.1)
[2017-12-01] MEDS: FOLIC/VIT B COMP W-C (RENAL) TABLET. PO (08:19)
[2017-12-01] MEDS: ASPIRIN 325 MG TABLET PO (08:19)
[2017-12-01] MEDS: SENNOSIDES/DOCUSATE 8.6/50MG TABLET. PO (08:19)
[2017-12-01] MEDS: POLYETHYLENE GLYCOL 3350 17 GM PACKET. PO (08:20)
[2017-12-01] MEDS: oxyCODONE IR 5 MG TABLET PO (08:20)
[2017-12-01] MEDS: ASCORBIC ACID 500 MG TABLET PO (08:20)
[2017-12-01] MEDS: LACTOBACILLUS RHAMNOSUS GG 1 CAPSULE. PO ×2 (08:21→22:08)
[2017-12-01] MEDS ORDERED: BISACODYL 10 MG SUPP.RECT. PR (14:45)
[2017-12-01] MEDS: PEG 3350/NA SULF,BICARB,CL/KCL 4,000 ML SOLUTION. PO (16:00)
[2017-12-01] MEDS: ONDANSETRON PF 4 MG/2 ML VIAL. IV (18:21)
[2017-12-02] MEDS: oxyCODONE IR 5 MG TABLET PO (02:51)
[2017-12-02] MEDS: HEPARIN PF for SUB-Q USE 5,000 UNIT/0.5 ML VIAL. SQ ×3 (06:38→22:05)
[2017-12-02] MEDS: ASPIRIN 325 MG TABLET PO (09:12)
[2017-12-02] MEDS: POLYETHYLENE GLYCOL 3350 17 GM PACKET. PO (09:12)
[2017-12-02] MEDS: LACTOBACILLUS RHAMNOSUS GG 1 CAPSULE. PO ×2 (09:12→22:01)
[2017-12-02] MEDS: ASCORBIC ACID 500 MG TABLET PO (09:12)
[2017-12-02] MEDS: FOLIC/VIT B COMP W-C (RENAL) TABLET. PO (09:12)
[2017-12-02] MEDS: SENNOSIDES/DOCUSATE 8.6/50MG TABLET. PO (09:12)
[2017-12-03] MEDS: HEPARIN PF for SUB-Q USE 5,000 UNIT/0.5 ML VIAL. SQ ×2 (06:11→14:00)
[2017-12-03] MEDS: LACTOBACILLUS RHAMNOSUS GG 1 CAPSULE. PO (09:01)
[2017-12-03] MEDS: FOLIC/VIT B COMP W-C (RENAL) TABLET. PO (09:02)
[2017-12-03] MEDS: SENNOSIDES/DOCUSATE 8.6/50MG TABLET. PO (09:02)
[2017-12-03] MEDS: ASPIRIN 325 MG TABLET PO (09:02)
[2017-12-03] MEDS: ASCORBIC ACID 500 MG TABLET PO (09:03)
[2017-12-03] MEDS: POLYETHYLENE GLYCOL 3350 17 GM PACKET. PO (09:03)
[2017-12-03 10:05] LABS: ALBUMIN 3.1 g/dL (3.4-5.0); ANION GAP 14 (6-14); BLOOD UREA NITROGEN 38 mg/dL (8-26); CALCIUM 9.6 mg/dL (8.5-10.1); CARBON DIOXIDE 23 mmol/L (21-32); CHLORIDE 104 mmol/L (98-107); CREATININE 2.1 mg/dL (0.7-1.3); GFR 35.3; GLUCOSE 104 mg/dL (70-99); PHOSPHORUS 4.5 mg/dL (2.6-4.7); POTASSIUM 4.7 mmol/L (3.5-5.1); SODIUM 141 mmol/L (136-145)
== END 2017-12-03 17:30 | disposition home health service (06) | DRG 853 ==
LOC: 1 WEST ICU 11-23 15:25 → ER 00:40 → 4 NORTH 05:35
PROC: 0KNT0ZZ Release Left Lower Leg Muscle, Open Approach (ICD-10-PCS; 2017-11-20 15:00)
PROC: 0KNT0ZZ Release Left Lower Leg Muscle, Open Approach (ICD-10-PCS; 2017-11-20 15:00)
PROC: 0KNW0ZZ Release Left Foot Muscle, Open Approach (ICD-10-PCS; 2017-11-20 15:00)
PROC: 0Y9J0ZZ Drainage of Left Lower Leg, Open Approach (ICD-10-PCS; 2017-11-20 15:00)
PROC: 02H633Z Insertion of Infusion Device into Right Atrium, Percutaneous Approach (ICD-10-PCS; principal; 2017-11-20 15:55)
PROC: 0J9R0ZZ Drainage of Left Foot Subcutaneous Tissue and Fascia, Open Approach (ICD-10-PCS; 2017-11-20 15:55)
PROC: 0JQP0ZZ Repair Left Lower Leg Subcutaneous Tissue and Fascia, Open Approach (ICD-10-PCS; 2017-11-20 15:55)
PROC: B244ZZZ Ultrasonography of Right Heart (ICD-10-PCS; 2017-11-20 15:55)
PROC: 5A09357 Assistance with Respiratory Ventilation, Less than 24 Consecutive Hours, Continuous Positive Airway Pressure (ICD-10-PCS; 2017-11-20 15:55)
PROC: 5A09357 Assistance with Respiratory Ventilation, Less than 24 Consecutive Hours, Continuous Positive Airway Pressure (ICD-10-PCS; 2017-11-20 15:55)
DX: A41.9 Sepsis, unspecified organism (principal); N17.0 Acute kidney failure with tubular necrosis; J81.0 Acute pulmonary edema; T79.A22A Traumatic compartment syndrome of left lower extremity, initial encounter; M62.82 Rhabdomyolysis; E66.01 Morbid (severe) obesity due to excess calories; T79.7XXA Traumatic subcutaneous emphysema, initial encounter; W19.XXXA Unspecified fall, initial encounter; S87.82XA Crushing injury of left lower leg, initial encounter; S97.82XA Crushing injury of left foot, initial encounter; R33.9 Retention of urine, unspecified; F17.210 Nicotine dependence, cigarettes, uncomplicated; K59.00 Constipation, unspecified; L08.9 Local infection of the skin and subcutaneous tissue, unspecified; S99.912A Unspecified injury of left ankle, initial encounter; W23.0XXA Caught, crushed, jammed, or pinched between moving objects, initial encounter; Z82.49 Family history of ischemic heart disease and other diseases of the circulatory system; Z99.2 Dependence on renal dialysis; Z68.31 Body mass index [BMI] 31.0-31.9, adult
CPT/HCPCS: 36415; 36556; 36600; 71045; 73610; 73630; 73701; 76770; 76937; 80048; 80053; 80069; 80202; 81001; 82040; 82310; 82436; 82550; 82805; 83605; 83735; 83970; 84100; 84133; 84300; 85007; 85014; 85018; 85025; 85027; 85610; 85651; 86706; 87040; 87071; 87075; 87205; 87340; 87449; 87641; 90715; 93306; 94660; 96361; 96374; 96375; 96376; 97110-GO; 97110-GP; 97116-GP; 97162-GP; 97164-GP; 97166-GO; 97530-GO; 97535-GO; 99285; 99285-25; A7015; C1769; C1892; J0690; J0780; J1100; J1940; J2175; J2250; J2270; J2370; J2405; J2543; J2704; J3010; J3370; J7030; Q9967; S0028

== ENCOUNTER → 2017-12-06 | Outpatient (CLI) | payer OTHER | END | disposition home or self-care (01) | LOC: PMGWOUND 11:35 | DX: T81.31XA Disruption of external operation (surgical) wound, not elsewhere classified, initial encounter (principal); E66.01 Morbid (severe) obesity due to excess calories; F17.210 Nicotine dependence, cigarettes, uncomplicated; Z99.2 Dependence on renal dialysis; Z68.31 Body mass index [BMI] 31.0-31.9, adult; Z79.82 Long term (current) use of aspirin; Y83.8 Other surgical procedures as the cause of abnormal reaction of the patient, or of later complication, without mention of misadventure at the time of the procedure | CPT/HCPCS: 97597; 97605 ==

== ENCOUNTER → 2017-12-15 | Outpatient (CLI) | payer OTHER | END | disposition home or self-care (01) | LOC: PMGWOUND 07:50 | DX: T81.31XD Disruption of external operation (surgical) wound, not elsewhere classified, subsequent encounter (principal); E66.01 Morbid (severe) obesity due to excess calories; F17.210 Nicotine dependence, cigarettes, uncomplicated; Z99.2 Dependence on renal dialysis; Z68.31 Body mass index [BMI] 31.0-31.9, adult; Z79.82 Long term (current) use of aspirin; Y83.8 Other surgical procedures as the cause of abnormal reaction of the patient, or of later complication, without mention of misadventure at the time of the procedure | CPT/HCPCS: 29581; 87205; 97597 ==

== ENCOUNTER → 2017-12-17 | Outpatient (CLI) | payer OTHER | END | disposition home or self-care (01) | LOC: PMGWOUND 07:55 | DX: T81.31XD Disruption of external operation (surgical) wound, not elsewhere classified, subsequent encounter (principal); E66.01 Morbid (severe) obesity due to excess calories; F17.210 Nicotine dependence, cigarettes, uncomplicated; Z68.31 Body mass index [BMI] 31.0-31.9, adult; Z99.2 Dependence on renal dialysis; Y83.8 Other surgical procedures as the cause of abnormal reaction of the patient, or of later complication, without mention of misadventure at the time of the procedure | CPT/HCPCS: 29581 ==

== ENCOUNTER → 2017-12-20 | Outpatient (CLI) | payer OTHER | END | disposition home or self-care (01) | LOC: PMGWOUND 08:22 | DX: T81.31XD Disruption of external operation (surgical) wound, not elsewhere classified, subsequent encounter (principal); E66.01 Morbid (severe) obesity due to excess calories; F17.210 Nicotine dependence, cigarettes, uncomplicated; Z68.31 Body mass index [BMI] 31.0-31.9, adult; Z99.2 Dependence on renal dialysis; Y83.8 Other surgical procedures as the cause of abnormal reaction of the patient, or of later complication, without mention of misadventure at the time of the procedure | CPT/HCPCS: 97597 ==

== ENCOUNTER 2017-12-21 07:12 | Day surgery (SDC) | payer OTHER ==
[2017-12-21] MEDS: IV RINGERS,LACTATED 1000ML 1,000 ML IV (07:00)
[~2017-12-21 07:12] MED LIST: BUPIVACAINE-EPI 0.25%-1:200000 50 ML VIAL.; LIDOCAINE 1% PF 2 ML VIAL. ID; ONDANSETRON PF 4 MG/2 ML VIAL. IV; fentaNYL PF VIAL 100 MCG/2 ML VIAL IV
[2017-12-21] MEDS ORDERED: fentaNYL PF VIAL 100 MCG/2 ML VIAL (07:54)
[2017-12-21] MEDS ORDERED: MIDAZOLAM HCL/PF 2 MG/2 ML VIAL. (07:54)
[2017-12-21] MEDS: VANCOMYCIN 1GM IVPB FOR OMNI 250 ML IV ×2 (07:55→08:05)
[2017-12-21] MEDS ORDERED: PROPOFOL 20 ML IV (07:58)
[2017-12-21] MEDS ORDERED: DEXAMETHASONE SOD PHOS 20 MG/5 ML VIAL. (07:58)
[2017-12-21] MEDS ORDERED: SEVOFLURANE 31 TO 60 MINUTES. IH (07:59)
[2017-12-21] MEDS ORDERED: ONDANSETRON PF 4 MG/2 ML VIAL. (07:59)
[2017-12-21] MEDS: MINERAL OIL 10 ML VIAL MC (09:08)
[2017-12-21] MEDS: fentaNYL PF VIAL 100 MCG/2 ML VIAL IV ×2 (09:56→10:07)
[2017-12-21] MEDS: PROCHLORPERAZINE 10 MG/2 ML VIAL. IV (09:56)
[2017-12-21] MEDS: MORPHINE SULFATE 4 MG/ML DISP.SYRIN. IV ×2 (09:57→10:37)
[2017-12-21] MEDS: HYDROcodone/APAP 5/325MG 1 TAB TABLET PO (10:38)
== END 2017-12-21 11:39 | disposition home or self-care (01) ==
LOC: SURG 07:12
DX: S97.82XA Crushing injury of left foot, initial encounter (principal); Z72.89 Other problems related to lifestyle; Z87.891 Personal history of nicotine dependence; Z98.890 Other specified postprocedural states; Z82.49 Family history of ischemic heart disease and other diseases of the circulatory system; Z88.1 Allergy status to other antibiotic agents; Z86.14 Personal history of Methicillin resistant Staphylococcus aureus infection; W23.0XXA Caught, crushed, jammed, or pinched between moving objects, initial encounter; Y93.89 Activity, other specified; Y92.89 Other specified places as the place of occurrence of the external cause; Y99.8 Other external cause status
CPT/HCPCS: 15120; A7015; J0780; J1100; J2250; J2270; J2405; J2704; J3010; J3370

== ENCOUNTER 2017-12-21 17:19 | Emergency (ER) | payer OTHER ==
[2017-12-21] MEDS ORDERED: GELATIN SPONGE SIZE 100. (17:58)
== END 2017-12-21 19:08 | disposition home or self-care (01) ==
LOC: ER 17:19
DX: L76.22 Postprocedural hemorrhage of skin and subcutaneous tissue following other procedure (principal); Z91.041 Radiographic dye allergy status; Y83.2 Surgical operation with anastomosis, bypass or graft as the cause of abnormal reaction of the patient, or of later complication, without mention of misadventure at the time of the procedure; Y82.8 Other medical devices associated with adverse incidents
CPT/HCPCS: 99283

== ENCOUNTER → 2018-01-11 | Outpatient (CLI) | payer OTHER | END | disposition home or self-care (01) | LOC: PMGWOUND 12:57 | DX: T81.31XD Disruption of external operation (surgical) wound, not elsewhere classified, subsequent encounter (principal); E66.01 Morbid (severe) obesity due to excess calories; Z68.31 Body mass index [BMI] 31.0-31.9, adult; Z99.2 Dependence on renal dialysis; Y83.8 Other surgical procedures as the cause of abnormal reaction of the patient, or of later complication, without mention of misadventure at the time of the procedure | CPT/HCPCS: 97597 ==

== ENCOUNTER → 2018-01-19 | Outpatient (CLI) | payer OTHER | END | disposition home or self-care (01) | LOC: PMGWOUND 11:00 | DX: T81.31XD Disruption of external operation (surgical) wound, not elsewhere classified, subsequent encounter (principal); E66.01 Morbid (severe) obesity due to excess calories; Z68.31 Body mass index [BMI] 31.0-31.9, adult; Z99.2 Dependence on renal dialysis; Y83.8 Other surgical procedures as the cause of abnormal reaction of the patient, or of later complication, without mention of misadventure at the time of the procedure | CPT/HCPCS: 97597 ==

== ENCOUNTER → 2018-01-24 | Outpatient (CLI) | payer OTHER | END | disposition home or self-care (01) | LOC: PMGWOUND 11:20 | DX: T81.31XD Disruption of external operation (surgical) wound, not elsewhere classified, subsequent encounter (principal); E66.01 Morbid (severe) obesity due to excess calories; F17.210 Nicotine dependence, cigarettes, uncomplicated; Z68.31 Body mass index [BMI] 31.0-31.9, adult; Y83.8 Other surgical procedures as the cause of abnormal reaction of the patient, or of later complication, without mention of misadventure at the time of the procedure | CPT/HCPCS: 99214 ==

== ENCOUNTER → 2018-01-31 | Outpatient (CLI) | payer OTHER ==
[2018-01-31 11:01] LABS: ADD MAN DIFF? NO
[2018-01-31 11:22] LABS: ANION GAP 9 (6-14); BLOOD UREA NITROGEN 12 mg/dL (8-26); CALCIUM 9.2 mg/dL (8.5-10.1); CARBON DIOXIDE 25 mmol/L (21-32); CHLORIDE 104 mmol/L (98-107); CREATININE 0.7 mg/dL (0.7-1.3); GFR 125.5; GLUCOSE 104 mg/dL (70-99); MAGNESIUM 1.9 mg/dL (1.8-2.4); PHOSPHORUS 3.2 mg/dL (2.6-4.7); POTASSIUM 3.8 mmol/L (3.5-5.1); SODIUM 138 mmol/L (136-145)
[2018-01-31 11:24] LABS: BASO # 0.1 x10^3/uL (0.0-0.2); BASO % 1 % (0-3); EOS # 0.9 x10^3/uL (0.0-0.7); EOS % 8 % (0-3); HEMOGLOBIN 13.4 g/dL (13.0-17.5); LYMPH # 4.6 x10^3/uL (1.0-4.8); LYMPH % 40 % (24-48); MEAN CORPUSCULAR HEMOGLOBIN 31 pg (25-35); MEAN CORPUSCULAR HGB CONC 35 g/dL (31-37); MEAN CORPUSCULAR VOLUME 86 fL (79-100); MONO # 0.8 x10^3/uL (0.0-1.1); MONO % 7 % (0-9); NEUT # 5.2 x10^3uL (1.8-7.7); NEUT % 45 % (31-73); PLATELET COUNT 442 x10^3/uL (140-400); RED CELL DISTRIBUTION WIDTH 13.2 % (11.5-14.5); WHITE BLOOD COUNT 11.6 x10^3/uL (4.0-11.0)
[2018-01-31 12:03] LABS: BILIRUBIN,URINE NEGATIVE (NEG); CLARITY,URINE CLEAR; COLOR,URINE YELLOW; GLUCOSE,URINE NEGATIVE (NEG)
[2018-01-31 12:04] LABS: NITRITE,URINE NEGATIVE (NEG); PH,URINE 5.5; PROTEIN,URINE NEGATIVE (NEG-TRACE); UROBILINOGEN,URINE 0.2 mg/dL (0.2 mg/dL)
[2018-01-31 12:23] LABS: RBC,URINE 0 /HPF (0-2); WBC,URINE 0 /HPF (0-4)
[2018-01-31 12:24] LABS: BACTERIA,URINE 0 /HPF (0-FEW); SQUAMOUS EPITHELIAL CELL,UR FEW /LPF
== END | disposition home or self-care (01) ==
LOC: LAB 10:46
DX: N17.9 Acute kidney failure, unspecified (principal)
CPT/HCPCS: 36415; 80069; 81001; 83735; 85025

== ENCOUNTER → 2018-01-31 | Outpatient (CLI) | payer OTHER | END | disposition home or self-care (01) | LOC: PMGWOUND 11:11 | DX: T81.31XD Disruption of external operation (surgical) wound, not elsewhere classified, subsequent encounter (principal); E66.01 Morbid (severe) obesity due to excess calories; F17.210 Nicotine dependence, cigarettes, uncomplicated; Z68.31 Body mass index [BMI] 31.0-31.9, adult; Y83.8 Other surgical procedures as the cause of abnormal reaction of the patient, or of later complication, without mention of misadventure at the time of the procedure | CPT/HCPCS: 99214 ==